=== PATIENT | male | born 1990 | race Caucasian/White ===

== ENCOUNTER → 2024-02-17 10:42 | Outpatient (REF) | payer OTHER, SELFPAY | LOC: HWRAD 10:42 | PROVIDERS: ATTENDING PHYSICIAN Family Medicine | DX: R31.0 Gross hematuria (principal) | CPT/HCPCS: 76770 ==

== ENCOUNTER → 2024-02-29 07:44 | Outpatient (REF) | payer OTHER, SELFPAY | LOC: RAD 07:44 | PROVIDERS: ATTENDING PHYSICIAN Urology; FAMILY PHYSICIAN Family Medicine | DX: R31.0 Gross hematuria (principal) | CPT/HCPCS: 74178; Q9967 ==

== ENCOUNTER → 2024-04-20 08:18 | Outpatient (REF) | payer OTHER, SELFPAY | LOC: HWRAD 08:18 | PROVIDERS: ATTENDING PHYSICIAN Internal Medicine; FAMILY PHYSICIAN Family Medicine | DX: R31.0 Gross hematuria (principal) | CPT/HCPCS: 93975 ==

== ENCOUNTER → 2024-04-26 07:36 | Outpatient (REF) | payer OTHER, SELFPAY | LOC: RAD 07:36 | PROVIDERS: ATTENDING PHYSICIAN Internal Medicine Rheumatology; FAMILY PHYSICIAN Family Medicine | DX: M45.9 Ankylosing spondylitis of unspecified sites in spine (principal) | CPT/HCPCS: 72050; 72072; 72110 ==

== ENCOUNTER 2024-11-07 06:22 | Day surgery (SDC) | payer OTHER, SELFPAY | END 2024-11-07 14:26 | disposition home or self-care (01) | LOC: GI 06:22 | PROVIDERS: ATTENDING PHYSICIAN Specialist | DX: R19.7 Diarrhea, unspecified (principal); Z83.79 Family history of other diseases of the digestive system | CPT/HCPCS: 45380; 88305 ==